=== PATIENT | female | born 1985 | race Caucasian/White ===

== ENCOUNTER 2023-08-23 11:24 | Emergency (ER) | payer MEDICAID ==
[~2023-08-23] VITALS: Ht 154.9 cm; Wt 52.2 kg
[~2023-08-23 11:24] MED LIST: ACET-8905 PO; CEPH-588 PO; NAPR-1704 PO; NITR100C7 PO; VIC PO
[2023-08-23 11:40] VITALS: BP 128/73; PULSE 100; RESP 14; TEMP 98.4; O2SAT 98
[2023-08-23 12:38] LABS: APPEARANCE,URINE CLEAR (CLEAR); BILIRUBIN,URINE NEGATIVE (NEGATIVE); BLOOD, URINE NEGATIVE (NEGATIVE); COLOR,URINE YELLOW (YELLOW); LEUKOCYTE ESTERASE ,URINE NEGATIVE (NEGATIVE); NITRITE, URINE NEGATIVE (NEGATIVE); PROTEIN,URINE NEGATIVE (NEGATIVE); UGLUCOSE NEGATIVE (NEGATIVE); UROBILINOGEN,URINE 0.2 EU/dL (0.2 - 1)
[2023-08-23] MEDS ORDERED: KETOROLAC 30 MG/ML VIAL IM ONE (13:20)
[2023-08-23] MEDS ORDERED: IBUP-2213 PO (13:21)
[2023-08-23] MEDS ORDERED: LID5T TP (13:21)
[2023-08-23 13:29] VITALS: BP 119/80; PULSE 83; RESP 12; O2SAT 98
[2023-08-23] MEDS ORDERED: POTASSIUM CHLORIDE 10 MEQ TABER PO ONE (19:00)
[2023-08-23] MEDS ORDERED: HYDROcodone/APAP 5/325 MG 1 TAB TAB ONE (19:22)
[2023-08-24] MEDS ORDERED: LIDOCAINE 5% 1 EA PATCH TP SCH (09:00)
== END 2023-08-23 13:55 | disposition home or self-care (01) ==
LOC: MED 11:24
DX: M54.9 Dorsalgia, unspecified (principal); R10.9 Unspecified abdominal pain; R51.9 Headache, unspecified; R42 Dizziness and giddiness; K21.9 Gastro-esophageal reflux disease without esophagitis; Z79.899 Other long term (current) drug therapy; Z90.49 Acquired absence of other specified parts of digestive tract; Z20.822 Contact with and (suspected) exposure to COVID-19
CPT/HCPCS: 81003; 81025; 87426; 96372; 99283; J1885

== ENCOUNTER 2024-03-12 11:44 | Emergency (ER) | payer MEDICAID, OTHER ==
[~2024-03-12] VITALS: Ht 154.9 cm; Wt 52.2 kg
[~2024-03-12 11:44] MED LIST changes: +IBUP-2213 PO; +LID5T TP
[2024-03-12 11:57] VITALS: BP 111/90; PULSE 85; RESP 16; TEMP 97.8; O2SAT 99
[2024-03-12 14:01] LABS: APPEARANCE,URINE CLEAR (CLEAR); BILIRUBIN,URINE NEGATIVE (NEGATIVE); BLOOD, URINE 3+ (NEGATIVE); LEUKOCYTE ESTERASE ,URINE 3+ (NEGATIVE); NITRITE, URINE POSITIVE (NEGATIVE); PROTEIN,URINE NEGATIVE (NEGATIVE); UGLUCOSE TRACE (NEGATIVE)
[2024-03-12 14:02] LABS: COLOR,URINE AMBER (YELLOW)
[2024-03-12] MEDS ORDERED: NITR100C7 PO (14:08)
[2024-03-12] MEDS ORDERED: PYR100 PO (14:08)
[2024-03-12 14:15] VITALS: BP 121/82; PULSE 88; RESP 16; TEMP 97.8; O2SAT 99
[2024-03-12 14:28] LABS: BACTERIA,URINE 1+ /HPF (None Seen); RBC,URINE 20-50 /HPF (0-5); SQUAMOUS EPITHELIAL CELL,UR 0-3 (FEW) /LPF (0-3 (FEW)); WBC,URINE >25 (MANY) /HPF (0-5)
== END 2024-03-12 14:15 | disposition home or self-care (01) ==
LOC: MED 11:44
DX: N39.0 Urinary tract infection, site not specified (principal); K21.9 Gastro-esophageal reflux disease without esophagitis; Z90.49 Acquired absence of other specified parts of digestive tract; Z79.899 Other long term (current) drug therapy
CPT/HCPCS: 81001; 81025; 87086; 99283